=== PATIENT | male | born 1990 | race American Indian/Alaskan Native ===

== ENCOUNTER 2017-02-17 16:24 | Emergency (ER) | payer SELFPAY ==
[2017-02-17 18:28] VITALS: BP 149/81
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
[2017-02-17] MEDS ORDERED: ROCEPHIN IM ONE (20:07)
[2017-02-17] MEDS ORDERED: ZITHROMAX PO ONE (20:07)
[2017-02-17] MEDS ORDERED: FLAGYL PO ONE (20:07)
[2017-02-17] MEDS ORDERED: XYLOCAINE 1% MPF 5 mL INFILTRATI ONE (20:07)
[2017-02-17 20:25] LABS: Bilirubin,Urine NEG (Negative); Blood,Urine NEG (Negative); Ketones,Urine NEG (Negative); Leukocyte Esterase,Urine NEG (Negative); Mucus,Urine FEW /HPF; Nitrite,Urine NEG (Negative); Protein,Urine <15 mg/dL mg/dL (Negative)
== END 2017-02-17 20:21 | disposition home or self-care (01) ==
LOC: ED 16:24
DX: A63.8 Other specified predominantly sexually transmitted diseases (principal); F17.200 Nicotine dependence, unspecified, uncomplicated
CPT/HCPCS: 81001; 87591; 96372; 99283; J0696